=== PATIENT | female | born 1980 | race Two or more races ===

== ENCOUNTER 2022-12-16 10:42 | Day surgery (SDC) | payer OTHER ==
[~2022-12-16] VITALS: Ht 180.3 cm; Wt 102.1 kg
[2022-12-16] MEDS ORDERED: PERCOCET 5-3251 EACH PO (15:26)
[2022-12-16] MEDS ORDERED: RECTICARE30 GM TOP (15:27)
== END 2022-12-16 21:20 | disposition home or self-care (01) ==
LOC: CIR.AMB 10:42
PROVIDERS: ATTEND Surgery
DX: K62.0 Anal polyp (principal); K62.1 Rectal polyp; D12.9 Benign neoplasm of anus and anal canal; K64.2 Third degree hemorrhoids; Z20.822 Contact with and (suspected) exposure to COVID-19; I10 Essential (primary) hypertension